=== PATIENT | male | born 1950 | race Caucasian/White ===

== ENCOUNTER → 2020-02-07 10:27 | Outpatient (CLI) | payer MEDICARE, MEDICAID, SELFPAY ==
--- NOTE | 2020-02-07 10:37 | XR_ITS ---
PROCEDURE: XR CHEST 2V CLINICAL INDICATION: COMPARISON: CXR CHEST(2 VIEWS-NOT PORTABLE) from 10/05/2013 CXR2 CHEST-AP VIEW ONLY from 05/18/2016 FINDINGS: No fracture or dislocation. No lytic or blastic change. There is normal mineralization. The joint spaces are well-preserved. No significant degenerative/arthritic changes. No erosive changes evident. Other findings:There is an old left midshaft clavicular fracture. There is an acute fracture involving the distal aspect of the clavicle IMPRESSION: Left clavicular fracture otherwise negative Dictated by: Berhane George MD 02/07/2020 12:51 Electronically signed by Berhane George MD in [facility] 02/07/2020 12:51
--- NOTE | 2020-02-07 10:37 | XR_ITS ---
PROCEDURE: XR SHOULDER LT MIN 2V CLINICAL INDICATION: CONTUSION OF L SHOULDER Pain COMPARISON: No exams were available for comparison FINDINGS: There is an old midshaft clavicular fracture with superior displacement of the distal fracture fragment by 12 mm. In addition, there is a mildly displaced fracture involving the distal aspect of clavicle with 6 mm superior despite placement of the distal fracture fragment. Glenohumeral joint is unremarkable. IMPRESSION: Acute mildly displaced distal clavicular fracture with superimposed old midshaft clavicular fracture. Dictated by: Berhane George MD 02/07/2020 12:52 Electronically signed by Berhane George MD in [facility] 02/07/2020 12:52
== END ==
PROVIDERS: PCP Family Medicine; Visit Provider Family Medicine
DX: S40.012A Contusion of left shoulder, initial encounter (principal)
CPT/HCPCS: 71046; 73030

== ENCOUNTER → 2020-02-16 09:38 | Outpatient (CLI) | payer MEDICARE, MEDICAID, SELFPAY ==
--- NOTE | 2020-02-16 09:47 | XR_ITS ---
PROCEDURE: XR AC JOINT LT CLINICAL INDICATION: clavicle FX Follow-up fracture COMPARISON: XR SHOULDER LT MIN 2V from 02/07/2020 XR CLAVICLE LT from 02/16/2020 FINDINGS: There is a an old midshaft clavicular fracture on the left with superior displacement of the distal fracture fragment. Subacute fracture involves the distal clavicle on the left with mild separation of the fracture fragments. Hyper lucency is present at the fracture site and may be related to hyperemia from underlying early healing. Fracture fragment is not significantly displaced AP view performed of the AC joints. It does not appear that weights were utilized. No significant AC separation evident. IMPRESSION: Old healed midshaft clavicle fracture on the left with subacute nondisplaced distal clavicular fracture on the left Dictated by: Berhane George MD 02/16/2020 15:04 Electronically signed by Berhane George MD in [facility] 02/16/2020 15:04
== END ==
PROVIDERS: PCP Family Medicine; Visit Provider Orthopaedic Surgery
DX: S42.002A Fracture of unspecified part of left clavicle, initial encounter for closed fracture (principal)
CPT/HCPCS: 73000; 73050

== ENCOUNTER 2020-03-03 16:52 | Emergency (ER) | payer MEDICARE, MEDICAID, SELFPAY ==
[2020-03-03 16:53] VITALS: BP 131/71; PULSE 60; RESP 16; TEMP 37; O2SAT 100; BMI 31.6
[2020-03-03 16:54] VITALS: BMI 31.6
--- NOTE | 2020-03-03 16:55 | CT_ITS ---
PROCEDURE: CT LUMBAR SPINE WO CON CLINICAL HISTORY: fall Posttraumatic pain, right-sided pain following injury COMPARISON: No exams were available for comparison TECHNIQUE: Axial images obtained with sagittal and coronal reformats. All CT scans at the facility use one or more dose reduction, viz: automated exposure control, ma/kV adjustment per patient size (including targeted exams where dose is matched to indication, i.e. head), or iterative reconstruction technique. FINDINGS: There is normal alignment. No acute lumbar fracture. There are anterior osteophytes at T12-L1 L1-L2 and L2-L3 and L3-L4. Mild bulging disc at L4-5 with facet and ligamentum hypertrophy with mild bilateral lateral recess and foraminal narrowing. This bulging disc with endplate hypertrophy and facet and ligamentum hypertrophy noted at L5-S1. Spurring is present along the facets at L5-S1 on the left causing moderate to severe left-sided foraminal narrowing. Bulging disc is present also at that level with bilateral lateral recess narrowing. Incidental note is made of distended urinary bladder with bladder diverticula. Small sclerotic focus is present at the S2 level and may be due to a bone island. There is a minimally offset fracture involving the posterior aspect of the right 11th rib and a nondisplaced fracture of the right 12th rib IMPRESSION: 1. Degenerative changes lumbar spine. No acute lumbar fracture. 2. Right 11th and 12th rib fractures 3. Distended urinary bladder Dictated b Berhane George MD 03/04/2020 06:19 Berhane George MD in [facility] 03/04/2020 06:19
--- NOTE | 2020-03-03 16:55 | XR_ITS ---
PROCEDURE: XR HIP RT 2-3V W/PELVIS CLINICAL INDICATION: Fall Posttraumatic pain COMPARISON: No exams were available for comparison FINDINGS: No fracture or dislocation is evident. No significant degenerative change. No lytic or blastic change. Unremarkable soft tissues. There are 3 pins in the left hip with some deformity of the left femoral head. IMPRESSION: No acute findings. Dictated b Berhane George MD 03/04/2020 05:45 Berhane George MD in [facility] 03/04/2020 05:45
--- NOTE | 2020-03-03 16:55 | CT_ITS ---
PROCEDURE: CT THORACIC SPINE WO CON CLINICAL HISTORY: fall Posttraumatic pain, injury with pain COMPARISON: CR XR CHEST 2V from 02/07/2020 TECHNIQUE: Axial images obtained with sagittal and coronal reformats. All CT scans at the facility use one or more dose reduction, viz: automated exposure control, ma/kV adjustment per patient size (including targeted exams where dose is matched to indication, i.e. head), or iterative reconstruction technique. FINDINGS: There is mild midthoracic curvature convex right. There is multilevel degenerative disc disease with osteophyte formation. There is mild superior compression deformities of T11 and T12 age indeterminate. No retropulsion. There is a nondisplaced fracture of the right 12th rib and a minimally offset fracture of the right 11th rib posteriorly. Nondisplaced fracture left 12th rib posteriorly age indeterminate. Minimally offset right 10th rib fracture also noted. There is trace bilateral pleural effusion. Atelectatic changes are present in the lung bases. IMPRESSION: 1. Minimal superior compression deformity of T11 and T12 age indeterminate. 2. Right 10th 11th and 12th rib fracture and possible left 12th rib fracture. Trace bilateral effusions. Dictated b Berhane George MD 03/04/2020 06:27 Brehane George MD in [facility] 03/04/2020 06:27
--- NOTE | 2020-03-03 16:57 | XR_ITS ---
PROCEDURE: XR CHEST AP CLINICAL HISTORY: Fall Posttraumatic pain COMPARISON: CR CXR CHEST(2 VIEWS-NOT PORTABLE) from 10/05/2013 CR CXR2 CHEST-AP VIEW ONLY from 05/18/2016 CR XR CHEST 2V from 02/07/2020 FINDINGS: The cardiomediastinal silhouette and pulmonary vascularity are within normal limits. The lungs are clear without infiltrates, suspicious nodules, or pleural effusions. There is a minimally displaced fracture involving the lateral aspect of the right 8th rib. No evidence of pneumothorax. There is an old left clavicular fracture. Mild atelectatic changes are present in the left lung base. IMPRESSION: Minimally displaced fracture right 8th rib laterally. Left basilar atelectasis Dictated b Berhane George MD 03/04/2020 05:47 Berhane George MD in [facility] 03/04/2020 05:47
--- NOTE | 2020-03-03 17:05 | PC.NURSE ---
pt gone to [facility]
--- NOTE | 2020-03-03 18:55 | [facility].EDFALL ---
ED Disposition Clinical Impression: Rib fracture, Compression fracture Disposition: Home, Self-Care Condition on Discharge: Good Instructions: DI for Acute Pain -- Adult Prescriptions: Nabumetone 750 mg PO BID 10 Days #20 tab Transmission Status: Pending to [facility] #[id number] Referrals: PCP,No [Non-Staff] - - Critical Care Critical Care Time: No Attestation: On 03/03/20, the high probability of a clinically significant, sudden or life threatening deterioration of the following system(s) required my full and direct attention, intervention and personal management. The time I documented below is in addition to time spent performing reported procedures but includes the following listed in this critical care notation. Medical Decision Making - Medical Records Medical records reviewed: Yes: I reviewed the patient's medical records. - Sherif Inquiry Pt receiving controlled substance: No Vital Signs: 03/03/20 16:53 Temperature 98.6 F Temperature Source Oral Pulse Rate [Right] 60 Respiratory Rate 16 Blood Pressure [Right Arm] 131/71 Blood Pressure Mean [Right Arm] 91 Blood Pressure Source [Right Arm] Automatic Cuff Blood Pressure Position [Right Arm] Sitting 02 Sat by Pulse Oximetry 100 Oxygen Delivery Method Room Air - Lab Data Lab results reviewed: Yes: I reviewed the patient's lab results. Orders (Tests/Meds): ORDERS Category Date Time Status CT lumbar spine wo con Stat Cat Scan 03/03/20 16:[address] thoracic spine wo con Stat Cat Scan 03/03/20 16:55 Taken CXR AP view [XR chest AP] Stat Exams 03/03/20 16:57 Taken XR hip RT 2-3V w/pelvis Stat Exams 03/03/20 16:55 Taken - CT Data CT Scan: T-Spine, L-Spine Time Received: 19:00 Preliminary Findings: Abnormal (Fracture and old compression fractures.) Fall HPI - General Chief Complaint: PAIN Stated Complaint: fall, right sided pain Time Seen by Provider: 03/03/20 18:55 Mode of Arrival: EMS Source of Information: Patient Limitations: No Limitations Description of Symptoms (Recalled from ER Triage Doc. by RN): pt fell and hit the middle of his back on the counter and thene fell in the floor. denies any LOC/head/neck pain. C/o pain in his middle right back - History of Present Illness MD complaint: fall Onset (ago): hour(s) Fall from: walking Fall witnessed: yes, by family Place fall occurred: other (Patient fell at home and hit the corner of her table. Patient is complaining about rib pain and some lower back pain.) Loss of consciousness: none Length of LOC: second(s) Prolonged down time: no Symptoms prior to fall: none Context: tripped/slipped Severity: moderate Severity scale (1-10): 3 Quality: sharp Associated symptoms (after fall): denies - Related Data Home Medications Medication Instructions Recorded Confirmed aspirin 81 mg tablet,delayed 81 mg PO DAILY 10/18/18 03/03/20 release metoprolol succinate 25 mg capsule 25 mg PO DAILY 10/18/18 03/03/20 sprinkle, ext. release 24 hr phenytoin sodium extended 100 mg 100 mg PO TID 10/18/18 03/03/20 capsule donepezil 5 mg tablet 5 mg PO DAILY 02/26/20 03/03/20 nitroglycerin 400 mcg/spray 1 spray TL Q5M PRN 02/26/20 03/03/20 translingual aerosol Previous Rx's Medication Instructions Recorded Nabumetone 750 mg PO BID 10 Days #20 tab 03/03/20 Allergies Allergy/AdvReac Type Severity Reaction Status Date / Time No Known Allergies Allergy Verified 02/26/20 16:36 [facility] History - Hepatitis A Screen Drug use history?: No High risk sexual behaviors?: No History of sexually transmitted infection?: No Currently employed?: No Childcare worker?: No Do you have indoor plumbing?: Yes Do you have electricity?: Yes Attestation statement:: This patient has been screened for Hepatitis A risk factors. I have reviewed the patient's past medical history: Yes Medical History: Reports:: Dementia, Hypertension, Seizures Other Medical History: Rep
[2020-03-03 19:11] VITALS: BP 130/74; PULSE 61; RESP 14; TEMP 37; O2SAT 97
== END 2020-03-03 19:14 | disposition home or self-care (01) ==
PROVIDERS: Emergency Provider Family Medicine; PCP Family Medicine
DX: S22.43XA Multiple fractures of ribs, bilateral, initial encounter for closed fracture (principal); S22.080A Wedge compression fracture of T11-T12 vertebra, initial encounter for closed fracture; W01.198A Fall on same level from slipping, tripping and stumbling with subsequent striking against other object, initial encounter; Y92.019 Unspecified place in single-family (private) house as the place of occurrence of the external cause; F03.90 Unspecified dementia, unspecified severity, without behavioral disturbance, psychotic disturbance, mood disturbance, and anxiety; G40.909 Epilepsy, unspecified, not intractable, without status epilepticus; I10 Essential (primary) hypertension
CPT/HCPCS: 71045; 72128; 72131; 73502; 99282

== ENCOUNTER → 2020-03-11 09:15 | Outpatient (CLI) | payer MEDICARE, MEDICAID, SELFPAY ==
--- NOTE | 2020-03-11 09:34 | XR_ITS ---
PROCEDURE: XR SHOULDER LT MIN 2V CLINICAL INDICATION: clavicle FX Follow-up fracture COMPARISON: CR XR SHOULDER LT MIN 2V from 02/07/2020 FINDINGS: The glenohumeral joint has an unremarkable appearance. There is a healing nondisplaced distal clavicular fracture with an old healed midshaft clavicular fracture The joint spaces are well-preserved. No significant degenerative/arthritic changes. No erosive changes evident. Other findings:None. IMPRESSION: Unremarkable glenohumeral joint. Healing distal clavicular fracture with an old healed midshaft clavicular fracture Dictated by: Berhane George MD 03/11/2020 10:27 Berhane George MD in [place] 03/11/2020 10:27
--- NOTE | 2020-03-11 09:36 | XR_ITS ---
PROCEDURE: XR CLAVICLE LT CLINICAL INDICATION: LT clavicle FU Follow-up fracture, pain COMPARISON: CR XR CLAVICLE LT from 02/16/2020 FINDINGS: There is a healing nondisplaced distal clavicular fracture with developing callus formation without significant displacement. In addition, there is an old healed midshaft clavicular fracture with mild inferior angulation of the distal fracture fragment and superior displacement of the distal fracture fragment. AC joint appears intact. Other findings:None. IMPRESSION: Healing nondisplaced distal clavicular fracture with an old healed midshaft clavicular fracture Dictated by: Berhane George MD 03/11/2020 10:25 Berhane George MD in [facility] 03/11/2020 10:25
== END ==
PROVIDERS: PCP Family Medicine; Visit Provider Orthopaedic Surgery
DX: S42.033A Displaced fracture of lateral end of unspecified clavicle, initial encounter for closed fracture (principal)
CPT/HCPCS: 73000; 73030